=== PATIENT | female | born 1950 | race African-American/Black ===

== ENCOUNTER → 2020-01-25 | Outpatient (CLI) | payer MEDICARE | LOC: RAD 09:31 | PROVIDERS: ATTEND Family Medicine | DX: I10 Essential (primary) hypertension (principal) | CPT/HCPCS: 93306 ==

== ENCOUNTER → 2020-04-07 | Outpatient (CLI) | payer MEDICARE | LOC: CARD 08:53 | PROVIDERS: ATTEND Family Medicine | DX: Z12.31 Encounter for screening mammogram for malignant neoplasm of breast (principal); I10 Essential (primary) hypertension; I51.7 Cardiomegaly | CPT/HCPCS: 77067; 93880 ==